=== PATIENT | male | born 1955 ===

== ENCOUNTER 2019-01-01 00:50 | Day surgery (SDC) | payer BC ==
[~2019-01-01] VITALS: Ht 177.8 cm; Wt 93.9 kg
[~2019-01-01 00:50] MED LIST: LISI-351 PO; OMEP-137 PO
[2019-01-01] MEDS ORDERED: LIDOCAINE MPF 1% 5 ML VIAL ONE ×4 (10:49→14:08)
[2019-01-01] MEDS ORDERED: PROPOFOL EMUL(*) 10MG/ML 20 ML 20 ML ONE ×4 (10:49→14:08)
[2019-01-01 11:30] VITALS: BP 140/76
[2019-01-01] MEDS ORDERED: NORMOSOL R SOLN(*) 1000 ML BAG 1,000 ML IV PRN (13:20)
[2019-01-01] MEDS ORDERED: LIDOCAINE/SOD BICARB 8.4% SYR ID ONE (13:20)
[2019-01-01 14:27] VITALS: BP 101/58
[2019-01-01 14:33] VITALS: BP 108/70
--- NOTE | 2019-01-01 14:35 | NUR ---
Patient supplemental oxygen reduced to 3L/min. patient tolerating well. O2 sats at 94%. pulse 74, 16 respiration. will continue to monitor and assess.
--- NOTE | 2019-01-01 14:40 | NUR ---
Patient supplemental oxygen removed. tolerating well. O2 sats at 92% pulse 78, respirations 16. will continue to monitor and assess.
[2019-01-01 15:05] VITALS: BP 106/64
--- NOTE | 2019-01-01 15:05 | NUR ---
orthostatic vitals taken. patient tolerating well. patient states the need to void. see vitals for report
[2019-01-01 15:06] VITALS: BP 100/69
--- NOTE | 2019-01-01 15:25 | NUR ---
Patient accompanied out.
== END 2019-01-01 15:25 | disposition home or self-care (01) ==
LOC: OR 00:50
PROVIDERS: ATTEND Family Medicine
DX: Z12.11 Encounter for screening for malignant neoplasm of colon (principal); Z80.0 Family history of malignant neoplasm of digestive organs; D12.2 Benign neoplasm of ascending colon; D12.4 Benign neoplasm of descending colon; D12.3 Benign neoplasm of transverse colon; D12.8 Benign neoplasm of rectum
CPT/HCPCS: 00811; 45380; 45385; 88305; J2001; J2704